=== PATIENT | male | born 1990 | race Caucasian/White ===

== ENCOUNTER 2021-04-13 00:12 | Observation (INO) | payer OTHER ==
[~2021-04-13] VITALS: Ht 170.2 cm; Wt 111.1 kg
--- NOTE | 2021-04-13 | NUR ---
RN MADE ROUNDS PATIENT WAS ASLEEP CALMLY IN HIS BED.
[2021-04-13 00:22] VITALS: BP 155/95
--- NOTE | 2021-04-13 00:32 | NUR ---
PATIENT SENT TO LOBBY
--- NOTE | 2021-04-13 00:33 | NUR ---
PATIENT AMBULATED TO THE BATHROOM FOR URINE COLLECTION
--- NOTE | 2021-04-13 00:38 | NUR ---
To ED bed 12
--- NOTE | 2021-04-13 00:49 | NUR ---
Dr. Singletary examining patient.
--- NOTE | 2021-04-13 00:50 | NUR ---
PT BIB SELF FOR C/C DRY MOUTH, FREQUENT URINATION, FATIGUE, BLURRED VISION, INCREASED THIRST. PT REPORTS DX OF PREDIABETES APPROX 2 YEARS AGO. DENIES PAINFUL URINATION. PT DENIES FAMILIAL HX OF DM.
--- NOTE | 2021-04-13 00:55 | NUR ---
ACCUCHECK REGISTERED "TOO HIGH" TO READ, ERMD AWARE.
[2021-04-13] MEDS ORDERED: NACL 0.9% 1,000 ML IV ONE (01:10)
[2021-04-13] MEDS ORDERED: NACL 0.9% 2,000 ML IV ONE (01:10)
[2021-04-13] MEDS ORDERED: INSULIN REGULAR, HUMAN 100 UNIT/ML VIAL IVP ONE (01:10)
[2021-04-13 01:21] LABS: BASOPHILS # (AUTO) 0.1 K/uL (0.00-0.22); EOSINOPHILS # (AUTO) 0.1 K/uL (0-0.4); EOSINOPHILS % (AUTO) 0.7 % (0.0-4.0); HEMATOCRIT 46.4 % (36-52); HEMOGLOBIN 16.1 g/dL (12.0-18.0); LYMPHOCYTES % (AUTO) 22.7 % (20.5-51.1); MEAN CORPUSCULAR HEMOGLOBIN 33 pg (27-31); MEAN CORPUSCULAR HGB CONC 35 g/dL (33-37); MEAN CORPUSCULAR VOLUME 94.6 fL (80-94); MONOCYTES # (AUTO) 0.9 K/uL (0.8-1.0); NEUTROPHILS # (AUTO) 5.7 K/uL (1.8-7.7); NEUTROPHILS % (AUTO) 65.6 % (42.2-75.2); PLATELET COUNT (AUTO) 218 K/uL (140-450); RED BLOOD CELL COUNT(AUTO) 4.91 MIL/uL (4.20-6.10); RED CELL DISTRIBUTION WIDTH 12.6 % (11.6-13.7); WHITE BLOOD COUNT (AUTO) 8.7 K/uL (4.8-10.8)
--- NOTE | 2021-04-13 01:30 | NUR ---
PER ERMD, CANCEL VERO D/T PT FULLY VACCINATED. FLU SWAB COLLECTED AND WALKED TO LAB.
[2021-04-13 01:43] LABS: ALBUMIN 3.9 g/dL (3.4-5.0); ANION GAP 13.7 (8-16); ASPARTATE AMINOTRANSFERASE 32 U/L (15-37); CARBON DIOXIDE 25.3 mmol/L (21-32); CHLORIDE 94 mmol/L (98-107); CREATININE 1.4 mg/dL (0.6-1.3); GFR ARICAN-AMERICAN 77 mL/min (>90); SODIUM SERUM 129 mmol/L (136-145); TOTAL BILIRUBIN 0.7 mg/dL (0.0-1.0); UREA NITROGEN, BLOOD 18 mg/dL (7-18)
--- NOTE | 2021-04-13 01:44 | NUR ---
XRAY AT BEDSIDE.
--- NOTE | 2021-04-13 01:45 | NUR ---
CRITICAL LABS RECEIVED FROM [place]: SERUM GLUCOSE 757, SERUM ACETONE SMALL. ERMD MADE AWARE.
[2021-04-13 01:46] LABS: ACETONE, SERUM SMALL (NEGATIVE)
[2021-04-13 01:47] LABS: GLUCOSE 757 mg/dL (74-106)
--- NOTE | 2021-04-13 02:54 | NUR ---
EMPTIED PTS BEDSIDE URINAL, 1000ML CLEAR, PALE YELLOW URINE.
[2021-04-13] MEDS ORDERED: POTASSIUM CHLORIDE 10 MEQ TABER PO PRN (03:00)
[2021-04-13] MEDS ORDERED: ONDANSETRON 4 MG/2 ML VIAL IVP PRN (03:00)
[2021-04-13] MEDS ORDERED: MAG SULF 2000 MG/WATER PREMIX 50 ML IV PRN (03:00)
[2021-04-13] MEDS ORDERED: HYDROcodone/APAP 5/325 MG 1 TAB TAB PO PRN (03:00)
[2021-04-13] MEDS ORDERED: KCL 20 MEQ/WATER INJ PREMIX 200 ML IV PRN (03:00)
[2021-04-13] MEDS ORDERED: MORPHINE SULFATE 4 MG/ML SYR IVP PRN (03:00)
[2021-04-13] MEDS ORDERED: ACETAMINOPHEN 325 MG TAB PO PRN (03:00)
[2021-04-13] MEDS ORDERED: NACL 0.9% 1,000 ML IV SCH (03:00)
[2021-04-13] MEDS ORDERED: MAGNESIUM OXIDE 400 MG TAB PO PRN (03:00)
[2021-04-13] MEDS ORDERED: DEXTROSE 50% 50 ML SYR IVP PRN (03:10)
--- NOTE | 2021-04-13 03:22 | NUR ---
VBG DRAWN AND HAND GIVEN TO RT. ALOK
--- NOTE | 2021-04-13 04:30 | NUR ---
Patient appears to be resting comfortably in bed. Vital Signs within normal limits. Respirations even and unlabored. PT DENIES DISCOMFORT. SIGNIFICANT OTHER AT BEDSIDE.
--- NOTE | 2021-04-13 05:07 | NUR ---
BEDSIDE URINAL EMPTIED, 800 CC CLEAR, PALE YELLOW URINE NOTED.
[2021-04-13 05:28] LABS: BASOPHILS # (AUTO) 0.1 K/uL (0.00-0.22); BASOPHILS % (AUTO) 0.7 % (0.0-2.0); EOSINOPHILS # (AUTO) 0.2 K/uL (0-0.4); EOSINOPHILS % (AUTO) 1.5 % (0.0-4.0); HEMOGLOBIN 15.1 g/dL (12.0-18.0); LYMPHOCYTES % (AUTO) 29.2 % (20.5-51.1); MEAN CORPUSCULAR HEMOGLOBIN 33 pg (27-31); MEAN CORPUSCULAR HGB CONC 35 g/dL (33-37); MEAN CORPUSCULAR VOLUME 93.1 fL (80-94); MONOCYTES # (AUTO) 1.1 K/uL (0.8-1.0); MONOCYTES % (AUTO) 10.7 % (1.7-9.3); NEUTROPHILS # (AUTO) 5.9 K/uL (1.8-7.7); NEUTROPHILS % (AUTO) 57.9 % (42.2-75.2); PLATELET COUNT (AUTO) 202 K/uL (140-450); RED BLOOD CELL COUNT(AUTO) 4.61 MIL/uL (4.20-6.10); RED CELL DISTRIBUTION WIDTH 12.7 % (11.6-13.7); WHITE BLOOD COUNT (AUTO) 10.2 K/uL (4.8-10.8)
[2021-04-13 05:57] LABS: ANION GAP 13.8 (8-16); CARBON DIOXIDE 24.8 mmol/L (21-32); POTASSIUM 3.6 mmol/L (3.5-5.1)
--- NOTE | 2021-04-13 07:00 | NUR ---
PT MOVED TO ER BED 2
--- NOTE | 2021-04-13 07:27 | NUR ---
RECEIVED REPORT FROM RN TEACHER NURSE FOR CONTINUITY OF CARE. PT IS STABLE AT THIS TIME. PLAN OF CARE DISCUSSED.
--- NOTE | 2021-04-13 07:29 | NUR ---
REPORT GIVEN TO GROVER ARVIZU FOR CONTINUITY OF CARE.
[2021-04-13] MEDS: BLOOD GLUCOSE MONITORING 1 DEV DEV FS SCH ×4 (08:24→21:53)
[2021-04-13] MEDS: INSULIN LISPRO SLIDING SCALE 100 UNITS/ML VIAL SUBQ PRN ×4 (08:28→21:54)
[2021-04-13] MEDS: metFORMIN 500 MG TAB PO SCH ×2 (09:00→16:58)
--- NOTE | 2021-04-13 09:30 | NUR ---
PT FINISHED EATING BREAKFAST. WAS GIVEN WATER REQUESTED. PT DENIES ANY DIZZINESS, DIFFICULTY SEEING, OR DRY MOUTH. PT IS STABLE AT THIS TIME. WILL CONTINUE TO MONITOR.
[2021-04-13] MEDS: NACL 0.9% 1,000 ML IV SCH ×2 (10:23→18:10)
--- NOTE | 2021-04-13 11:09 | NUR ---
PT'S BS READING WAS 347. HUMALOG INSULIN WAS GIVEN PER SLIDING SCALE, 8 UNITS. MEDICATION EDUCATION WAS PROVIDED AND PT VERBALIZED UNDERSTANDING. Addendum: 04/13/21 at 1110 by BAL THIS NOTE WAS FOR 0828 NOT 1109 AM.
--- NOTE | 2021-04-13 11:14 | NUR ---
PT IS ASLEEP IN BED. NO RESPIRATORY DISTRESS NOTED. IV IS PATENT AND INFUSING FLUIDS ORDERED. VITAL SIGNS ARE STABLE AT THIS TIME. CALL LIGHT IS WITHIN REACH.
--- NOTE | 2021-04-13 11:49 | NUR ---
BS READING WAS 306. HUMALOG INSULIN WAS GIVEN PER SLIDING SCALE, 8 UNITS. PT IS STABLE.
--- NOTE | 2021-04-13 12:15 | NUR ---
RECEIVED PATIENT REPORT FROM ER NURSE OVER THE PHONE. AWAITING FOR PATIENT TO ARRIVE TO THE UNIT.
--- NOTE | 2021-04-13 12:25 | NUR ---
REPORT GIVEN TO ERI NESS, MED SURG TELE UNIT.
--- NOTE | 2021-04-13 12:35 | NUR ---
PT WAS TAKEN TO MED SURG UNIT VIA WHEELCHAIR BY REVIEW COORDINATOR. PT IS STABLE AT THIS TIME. NO DISTRESS NOTED. AMBULATORY INDEPENDENTLY TO WHEELCHAIR WITH STEADY GAIT.
[2021-04-13 12:45] VITALS: BP 147/87
--- NOTE | 2021-04-13 12:45 | NUR ---
RECEIVED PATIENT FROM ER NURSE. ADMITTED FOR NEW DIAGNOSED DM. PT IS STABLE. RESPIRATIONS EVEN AND UNLABORED. ON ROOM AIR AND NO DISTRESS NOTED. SKIN IS WARM, DRY, AND INTACT. IV SITE ON LAC 20 INFUSING NS @80 ML/HR. ABD SOFT, FLAT, AND NON-DISTENDED. BOWEL SOUNDS ACTIVE IN ALL 4 QUADRANTS. DENIES PAIN AT THE MOMENT. PLAN OF CARE DISCUSSED. SAFETY PRECAUTIONS IN PLACE. CALL LIGHT WITHIN REACH. WILL CONTINUE TO MONITOR.
--- NOTE | 2021-04-13 15:30 | NUR ---
ENDORSED BEDSIDE REPORT TO GROVER MARTINEZ FOR CONTINUITY OF CARE. PT IS STABLE.
--- NOTE | 2021-04-13 15:30 | NUR ---
RECEIVED REPORT FROM GROVER HWANG FOR CONTINUITY OF CARE OF PT. PT IS IN AWAKE AND ALERT, A&O4. PT IS ON RA WITH UNLABORED BREATHING. IV IS INTACT ON LAC WITH RUNNING FLUIDS. PT SKIN IS DRY AND WARM. PT IS STABLE. REVIEWED PLAN OF CARE. CALL LIGHT WITHIN REACH. ALL SAFETY MEASURES ARE IN PLACE. WILL CONTINUE TO MONITOR.
[2021-04-13 16:00] VITALS: BP 143/84
--- NOTE | 2021-04-13 16:51 | NUR ---
PT BLOOD GLUCOSE WAS CHECKED AND IS 299. WILL ADMINISTER INSULIN.
--- NOTE | 2021-04-13 17:06 | NUR ---
ADMINISTERED PRESCRIBED MEDICATION. MEDICATION EDUCATION PERFORMED. PT VERBALIZED UNDERSTANDING. CALL LIGHT WITHIN REACH. SAFETY MEASURES ARE IN PLACE AND WILL CONTINUE TO MONITOR.
--- NOTE | 2021-04-13 18:25 | NUR ---
PT IS AWAKE AND SITTING IN BED TALKING ON THE PHONE. PT IS ON RA WITH UNLABORED BREATHING. PT IS STABLE. CALL LIGHT WITHIN REACH. ALL SAFETY MEASURE ARE IN PLACE AND WILL CONTINUE TO MONITOR.
--- NOTE | 2021-04-13 19:15 | NUR ---
ENDORSED BEDSIDE REPORT TO VINEYARDIST NURSE FOR CONTINUITY OF CARE. PT IS STABLE.
[2021-04-13 20:00] VITALS: BP 145/83
--- NOTE | 2021-04-13 20:00 | NUR ---
PATIENT WAS RECEIVED IN BED ALERT VERBAL IN [place], NO COMPLAINT OF ANY DISCOMFORT, PAIN NOR DISATISFACTION,
--- NOTE | 2021-04-13 20:00 | NUR ---
PATIENT WAS RECEIVED IN BED WITH NO DISTRESS. VERBAL IN [place]
[2021-04-13] MEDS: INSULIN LANTUS 100 UNITS/ML 10 ML VIAL SUBQ SCH (21:53)
--- NOTE | 2021-04-13 22:00 | NUR ---
ALL DUE MEDS WERE GIVEN TOLERATED WELL BY THE PATIENT
--- NOTE | 2021-04-13 23:00 | NUR ---
PATIENT WENT TO THE BATHROOM, RN PAUSED TH HYDRATION FOR MINUTE, CAME BACK AND HAD HIM SELF BE HOOK AGAIN
[2021-04-14 04:00] VITALS: BP 124/70
[2021-04-14] MEDS: NACL 0.9% 1,000 ML IV SCH ×2 (05:46→17:06)
[2021-04-14 05:54] LABS: BASOPHILS # (AUTO) 0.1 K/uL (0.00-0.22); BASOPHILS % (AUTO) 0.9 % (0.0-2.0); EOSINOPHILS # (AUTO) 0.2 K/uL (0-0.4); EOSINOPHILS % (AUTO) 2.4 % (0.0-4.0); HEMATOCRIT 42.6 % (36-52); HEMOGLOBIN 14.7 g/dL (12.0-18.0); LYMPHOCYTES # (AUTO) 2.4 K/uL (2.0-11.5); LYMPHOCYTES % (AUTO) 30.5 % (20.5-51.1); MEAN CORPUSCULAR HEMOGLOBIN 32 pg (27-31); MEAN CORPUSCULAR HGB CONC 34 g/dL (33-37); MONOCYTES # (AUTO) 0.7 K/uL (0.8-1.0); MONOCYTES % (AUTO) 8.9 % (1.7-9.3); NEUTROPHILS # (AUTO) 4.4 K/uL (1.8-7.7); NEUTROPHILS % (AUTO) 57.3 % (42.2-75.2); PLATELET COUNT (AUTO) 189 K/uL (140-450); RED BLOOD CELL COUNT(AUTO) 4.53 MIL/uL (4.20-6.10); RED CELL DISTRIBUTION WIDTH 12.7 % (11.6-13.7); WHITE BLOOD COUNT (AUTO) 7.7 K/uL (4.8-10.8)
[2021-04-14] MEDS: BLOOD GLUCOSE MONITORING 1 DEV DEV FS SCH ×4 (06:08→20:49)
[2021-04-14] MEDS: INSULIN LISPRO SLIDING SCALE 100 UNITS/ML VIAL SUBQ PRN ×4 (06:09→20:53)
[2021-04-14 06:22] LABS: ALBUMIN 3.3 g/dL (3.4-5.0); ANION GAP 9.8 (8-16); CARBON DIOXIDE 26.7 mmol/L (21-32); CHOL/HDL RATIO 5.6 (1-4.5); CREATININE 0.8 mg/dL (0.6-1.3); POTASSIUM 3.5 mmol/L (3.5-5.1); THYROID STIMULATING HORMONE 4.89 uIU/mL (0.34-3.74)
--- NOTE | 2021-04-14 06:42 | NUR ---
REPORTS WERE GIVEN ,TRANSFER OF CARE ENDORSED.
--- NOTE | 2021-04-14 07:30 | NUR ---
RECEIVED PT AAOX4. NO SOB NOTED. NO C/O PAIN AT THIS TIME. IV TO LAC PATENT AND INTACT. CHEST CLEAR, ABDOMEN SOFT, BOWEL SOUNDS PRESENT. NO EDEMA NOTED. INSTRUCTED PT TO CALL FOR ASSISTANCE, CALL LIGHT WITHIN REACH, VERBALIZED UNDERSTANDING.
[2021-04-14 08:00] VITALS: BP 120/65
--- NOTE | 2021-04-14 09:04 | NUR ---
PATIENT HAS BEEN SCREENED AND CATEGORIZED HIGH NUTRITION RISK. PATIENT WILL BE SEEN WITHIN 1-2 DAYS OF ADMISSION. 04/14/21 REFERRAL RECEIVED FOR NEWLY DIAGNOSED WITH DIABETES HUGO [address]
[2021-04-14] MEDS: metFORMIN 500 MG TAB PO SCH ×2 (09:09→18:56)
[2021-04-14] MEDS ORDERED: FLUCONAZOLE 100 MG TAB PO SCH (11:30)
--- NOTE | 2021-04-14 12:00 | NUR ---
PT'S SIGNIFICANT OTHER VISITED PT AND BROUGHT FOOD FROM HOME. EDUCATED PT THAT HIS CALORIES PER DAY IS CALCULATED BY [facility] AND HE IS NOT SUPPOSED TO EAT FOOD FROM HOME WHILE HE IS IN THE HOSPITAL DUE TO HIS DIABETES DIAGNOSES. PT INSISTED THE HE ATE FOOD FROM HOME YESTERDAY AND NOBODY TOLD HIM NOT TO. PT REFERRED TO [facility]. HUGO WILL BE HERE TO GIVE MORE DIABETIC EDUCATION REGARDING PT'S DIET.
--- NOTE | 2021-04-14 15:07 | NUR ---
04/14/21 RD INITIAL ASSESSMENT COMPLETED PLEASE REFER TO NUTRITION ASSESSMENT UNDER CARE ACTIVITY FOR ESTIMATED NUTRITIONAL NEEDS. 1. CONTINUE CONSISTENT CARBOHYDRATE DIET TOLERATED 2. RD PROVIDED DIABETES NUTRITION EDUCATION 3. RD TO FOLLOW-UP 3-5 DAYS, MODERATE RISK HUGO [address] RD
[2021-04-14 16:00] VITALS: BP 150/80
--- NOTE | 2021-04-14 16:28 | NUR ---
DC PLANNING: PATIENT ADMITTED WITH IN DKA, NEW ONSET DM. PATIENT LIVES WITH HIS PARENTS IN A SINGLE STORY HOUSE, IS CURRENTLY UNEMPLOYED. NO DME OR HOME HEALTH, INSTRUCTED TO FOLLOW UP WITH HIS PCP WHO HE DOESN'T SEE OFTEN TO CONTINUE HIS PRESCRIPTIONS. GIVEN [employer] WEBSITE FOR RESOURCES, WILL ALSO ASK [facility] FOR A GLUCOMETER FOR BS MONITORING. PLAN IS FOR PATIENT TO RETURN HOME, CM WILL CONTINUE TO FOLLOW FOR NEEDS.
--- NOTE | 2021-04-14 19:30 | NUR ---
PT RESTING. NO COMPLAINTS MADE. ENDORSED TO NEXT SHIFT NURSE FOR CONTINUITY OF CARE.
--- NOTE | 2021-04-14 19:31 | NUR ---
RECEIVED PATIENT FROM AM NURSE FOR CONTINUITY OF CARE. PATIENT A/A/O X4. FAMILY AT BEDSIDE. RESPIRATORY EVEN AND UNLABORED, ON ROOM AIR. NO SIGN OF DISTRESS NOTED. SKIN WARM, DRY, NON DIAPHORETIC. IV ON LEFT AC 20G, INTACT AND PATENT, IS INFUSING FLUID ORDER. PATIENT DENIES ANY PAIN OR DISCOMFORT. ABLE TO MAKE NEEDS KNOW. PLAN OF CARE DISCUSSED, EDUCATED PATIENT THE [facility], PATIENT VERBALIZED UNDERSTANDING. CALL LIGHT WITHIN REACH. WILL CONTINUE TO MONITOR.
[2021-04-14 20:00] VITALS: BP 140/73
--- NOTE | 2021-04-14 20:15 | NUR ---
PATIENT AMBULATES TO BATHROOM WITH STEADY GAIT INDEPENDENTLY. NO SIGN OF DISTRESS NOTED. WILL CONTINUE TO MONITOR.
--- NOTE | 2021-04-14 20:49 | NUR ---
BLOOD SUGAR CHECK 241, 4UNIT HUMALOG GIVEN TO COVER ORDER. SCHEDULE MEDICATIONS GIVEN WITH EDUCATION. PATIENT VERBALIZED UNDERSTANDING. CALL LIGHT WITHIN REACH. WILL CONTINUE TO MONITOR.
[2021-04-14] MEDS: INSULIN LANTUS 100 UNITS/ML 10 ML VIAL SUBQ SCH (20:50)
--- NOTE | 2021-04-14 22:00 | NUR ---
PATIENT IS AWAKE, RESTING IN BED, USING CELLPHONE, NO SIGN OF RESPIRATORY DISTRESS NOTED. CALL LIGHT WITHIN REACH. WILL CONTINUE TO MONITOR.
--- NOTE | 2021-04-15 | NUR ---
PATIENT IS SLEEPING, CHEST RISE AND FALL, NO SIGN OF DISTRESS NOTED. CALL LIGHT WITHIN REACH. WILL CONTINUE TO MONITOR.
--- NOTE | 2021-04-15 02:00 | NUR ---
ROUND CHECK. PATIENT IS SLEEPING, CHEST RISE AND FALL. AROUSABLE TO VOICE. NO SIGN OF DISTRESS NOTED. CALL LIGHT WITHIN REACH. WILL CONTINUE TO MONITOR.
[2021-04-15] MEDS: NACL 0.9% 1,000 ML IV SCH ×2 (02:44→12:04)
--- NOTE | 2021-04-15 04:00 | NUR ---
PATIENT IS SLEEPING, CHEST RISE AND FALL, AROUSABLE TO VOICE, NO SIGN OF DISTRESS NOTED. CALL LIGHT WITHIN REACH. WILL CONTINUE TO MONITOR.
[2021-04-15 06:37] LABS: BASOPHILS # (AUTO) 0.1 K/uL (0.00-0.22); BASOPHILS % (AUTO) 0.7 % (0.0-2.0); EOSINOPHILS # (AUTO) 0.2 K/uL (0-0.4); EOSINOPHILS % (AUTO) 2.3 % (0.0-4.0); HEMATOCRIT 42.3 % (36-52); HEMOGLOBIN 14.9 g/dL (12.0-18.0); LYMPHOCYTES # (AUTO) 2.6 K/uL (2.0-11.5); LYMPHOCYTES % (AUTO) 33.8 % (20.5-51.1); MEAN CORPUSCULAR HEMOGLOBIN 32 pg (27-31); MEAN CORPUSCULAR HGB CONC 35 g/dL (33-37); MEAN CORPUSCULAR VOLUME 91.7 fL (80-94); MONOCYTES # (AUTO) 0.8 K/uL (0.8-1.0); MONOCYTES % (AUTO) 10.5 % (1.7-9.3); NEUTROPHILS % (AUTO) 52.7 % (42.2-75.2); PLATELET COUNT (AUTO) 191 K/uL (140-450); RED BLOOD CELL COUNT(AUTO) 4.61 MIL/uL (4.20-6.10); RED CELL DISTRIBUTION WIDTH 12.7 % (11.6-13.7); WHITE BLOOD COUNT (AUTO) 7.6 K/uL (4.8-10.8)
[2021-04-15] MEDS: BLOOD GLUCOSE MONITORING 1 DEV DEV FS SCH ×2 (06:38→12:04)
--- NOTE | 2021-04-15 06:38 | NUR ---
BLOOD SUGAR CHECK 198, 2 UNITS OF INSULIN GIVEN WITH EDUCATION. PATIENT VERBALIZED UNDERSTANDING. CALL LIGHT WITHIN REACH. WILL CONTINUE TO MONITOR.
[2021-04-15] MEDS: INSULIN LISPRO SLIDING SCALE 100 UNITS/ML VIAL SUBQ PRN ×2 (06:39→12:03)
--- NOTE | 2021-04-15 07:15 | NUR ---
ENDORSED PATIENT TO AM NURSE FOR CONTINUITY OF CARE. PATIENT IS STABLE.
[2021-04-15 08:00] VITALS: BP 142/52
--- NOTE | 2021-04-15 08:15 | NUR ---
RECEIVED BEDSIDE REPORT FROM DAYSHIFT NURSE. PT RESTING IN BED. ABLE TO MAKE NEEDS KNOWN. RESPIRATIONS EVEN AND UNLABORED WITH NO SOB OR RESPIRATORY DISTRESS. SKIN WARM AND DRY TO TOUCH. SAFETY MEASURES IN PLACE. WILL CONTINUE TO MONITOR
[2021-04-15] MEDS: metFORMIN 500 MG TAB PO SCH (09:16)
--- NOTE | 2021-04-15 09:19 | NUR ---
ADMINISTERED SCHED MED PRESCRIBED PER MD ORDER. MEDICATION EDUCATION PERFORMED. PT VERBALIZED UNDERSTANDING. SAFETY MEASURES IN PLACE. WILL CONTINUE TO MONITOR
--- NOTE | 2021-04-15 12:11 | NUR ---
ADMINISTERED SCHED MED PRESCRIBED PER MD ORDER. PT TOLERATED WELL. SAFETY MEASURES IN [place]. WILL CONTINUE TO MONITOR
--- NOTE | 2021-04-15 13:15 | NUR ---
PT AWARE OF DC AND WOULD LIKE TO GO HOME BEFORE DINNER. SAFETY MEASURES IN PLACE. WILL CONTINUE TO MONITOR
[2021-04-15] MEDS ORDERED: METF1000 PO (14:00)
[2021-04-15 14:26] VITALS: BP 145/62
--- NOTE | 2021-04-15 15:30 | NUR ---
WENT OVER DISCHARGE INSTRUCTIONS. PT SIGNED APPROPRIATE DOCUMENTS. PROVIDED THROUGH DM MANAGEMENT. PROVIDED LOTS OF DM PAPERWORK. PT VERBALIZED UNDERSTANDING. PT HAS SCRIPT. EDUCATED ON MEDICATIONS PT VERBALIZED UNDERSTANDING. REMOVED INTACT IV CANNULA. PT TOLERATED WELL. PT UP TO DATE ON VACCINES. PT GATHERED HIS BELONGINGS AND CHANGED INTO HIS OWN CLOTHES. PT STABLE TO GO HOME
--- NOTE | 2021-04-16 21:12 | NUR ---
LATE ENTRY- 0.9% NS IVF DISCONTINUED AT 1246
--- NOTE | 2021-04-18 07:31 | NUR ---
Late entry 04/14/21 0 approximately 0300 IV infusion completed.
== END 2021-04-15 15:36 | disposition home or self-care (01) ==
LOC: MED 00:12 → MTU 03:07
PROVIDERS: ADMIT Internal Medicine; ATTEND Internal Medicine
DX: E11.65 Type 2 diabetes mellitus with hyperglycemia (principal); E66.9 Obesity, unspecified; R53.83 Other fatigue; R68.2 Dry mouth, unspecified; E87.1 Hypo-osmolality and hyponatremia; Z68.31 Body mass index [BMI] 31.0-31.9, adult; Z79.4 Long term (current) use of insulin; Z79.899 Other long term (current) drug therapy; Z86.011 Personal history of benign neoplasm of the brain
CPT/HCPCS: 36415; 71045; 80048; 80053; 80061; 82009; 82803; 82948; 83036; 84443; 85025; 87081; 87804; 96361; 96372; 96374; 99291; G0378; J1815